=== PATIENT | female | born 1980 | race Two or more races ===

== ENCOUNTER 2020-10-07 15:51 | Outpatient (REF) | payer OTHER, SELFPAY ==
--- NOTE | 2020-10-07 16:22 | US_ITS ---
EXAMINATION: ULTRASOUND OB. CLINICAL INFORMATION: Threatened . Bleeding. COMPARISON: None TECHNIQUE: Transabdominal and transvaginal imaging of pelvis is performed. FINDINGS: There is an anteverted uterus with no intrauterine seen. There is no pole or yolk sac. The cervix is long and closed. There are multiple uterine fibroids seen. The two largest measured are, 2.5 x 2.7 x 2.9 cm in left body of uterus and 2.8 x 2.5 x 2.0 cm in the right body of uterus. The right ovary measures 2.0 x 1.6 x 1.4 cm. It appears unremarkable. The left ovary is not seen. There is no free fluid in the cul-de-sac. US/US OB <= 14 weeks fetus IMPRESSION: 1. No intrauterine seen. 2. There are multiple uterine fibroids. 3. The right ovary is unremarkable. The left ovary is not seen.
--- NOTE | 2020-10-07 16:22 | US_ITS ---
EXAMINATION: ULTRASOUND OB. CLINICAL INFORMATION: Threatened . Bleeding. COMPARISON: None TECHNIQUE: Transabdominal and transvaginal imaging of pelvis is performed. FINDINGS: There is an anteverted uterus with no intrauterine seen. There is no pole or yolk sac. The cervix is long and closed. There are multiple uterine fibroids seen. The two largest measured are, 2.5 x 2.7 x 2.9 cm in left body of uterus and 2.8 x 2.5 x 2.0 cm in the right body of uterus. The right ovary measures 2.0 x 1.6 x 1.4 cm. It appears unremarkable. The left ovary is not seen. There is no free fluid in the cul-de-sac. US/US OB transvaginal IMPRESSION: 1. No intrauterine seen. 2. There are multiple uterine fibroids. 3. The right ovary is unremarkable. The left ovary is not seen.
[2020-10-07 18:02] LABS: HCG Quantitative 8 mIU/mL
== END 2020-10-07 15:52 | disposition home or self-care (01) ==
LOC: HO.US 15:51
PROVIDERS: Visit Provider Advanced Practice Midwife
DX: O20.0 Threatened abortion (principal); N92.6 Irregular menstruation, unspecified
CPT/HCPCS: 76801; 76817; 84702; 86850; 86886; 86900; 86901

== ENCOUNTER → 2020-10-08 11:00 | Outpatient (BNVA) | payer OTHER, SELFPAY | PROVIDERS: Visit Provider Advanced Practice Midwife | DX: Z76.89 Persons encountering health services in other specified circumstances (principal) ==

== ENCOUNTER 2021-02-19 10:46 | Outpatient (REF) | payer OTHER, SELFPAY ==
[2021-02-19 17:21] LABS: CT PCR NOT DETECTED (Not Detect.); NG PCR NOT DETECTED (Not Detect.)
[2021-02-20 08:58] LABS: BV Int Neg Control Negative (Negative); BV Int Pos Control Positive (Positive)
== END 2021-02-19 10:47 | disposition home or self-care (01) ==
LOC: HO.LAB 10:46
PROVIDERS: Visit Provider Advanced Practice Midwife
DX: Z30.09 Encounter for other general counseling and advice on contraception (principal); N89.8 Other specified noninflammatory disorders of vagina; B37.3 Candidiasis of vulva and vagina; Z20.2 Contact with and (suspected) exposure to infections with a predominantly sexual mode of transmission
CPT/HCPCS: 87480; 87491; 87510; 87591; 87660; 99212

== ENCOUNTER 2021-04-28 15:11 | Outpatient (REF) | payer OTHER, SELFPAY ==
[2021-04-29 02:35] LABS: CT PCR NOT DETECTED (Not Detect.); NG PCR NOT DETECTED (Not Detect.)
[2021-04-29 09:14] LABS: BV Int Neg Control Negative (Negative); BV Int Pos Control Positive (Positive)
== END 2021-04-28 15:12 | disposition home or self-care (01) ==
LOC: HO.LAB 15:11
PROVIDERS: Visit Provider Obstetrics & Gynecology
DX: N89.8 Other specified noninflammatory disorders of vagina (principal); B37.3 Candidiasis of vulva and vagina
CPT/HCPCS: 87480; 87491; 87510; 87591; 87660; 99212

== ENCOUNTER 2021-12-04 08:13 | Outpatient (REF) | payer MEDICAID, SELFPAY ==
--- NOTE | ~2021-12-04 | US_ITS ---
EXAMINATION: US OBSTETRICAL ULTRASOUND CLINICAL INFORMATION: Hemorrhage and early COMPARISON: None. LMP: 10/13/2021. Gestational age by maternal dates is 7 weeks 3 days. Estimated date of delivery by maternal dates is 07/20/2022. TECHNIQUE: Transabdominal first trimester OB ultrasound FINDINGS: There is a single intrauterine gestational sac with visible yolk sac, embryo/fetus, and cardiac activity. There is no significant subchorionic hemorrhage or hematoma. HR: 155 beats per minute. CRL (crown rump length): 1.07 cm (7 weeks 2 days +/- 4 days). KINA (estimated date of delivery): 07/21/2022 11/11/2004). +/- 4 days. There are 4 uterine fibroids identified. There is an intramural anterior uterine body fibroid that measures 1.6 x 1.7 x 2.1 cm. There is a subserosal posterior uterine body fibroid that measures 3.2 x 3.5 x 3.8 cm. There is an anterior intramural fundal uterine fibroid that measures 1.6 x 1.1 x 1.8 cm. There is a posterior fundal uterine fibroid that measures 3.3 x 2.6 x 2.7 cm. MATERNAL ADNEXA: The right maternal ovary measures 2 x 1.3 x 2.2 cm. The left maternal ovary measures 4.1 x 1.8 x 4.1. There is a 2.2 x 2 x 1.8 cm complex left ovarian cyst. There is no ascites. US/US OB <= 14 weeks fetus IMPRESSION: 1. Single intrauterine gestation with ultrasound gestational age of 7 weeks 2 days +/- 4 days. 2. Estimated date of delivery is 07/21/2022 +/- 4 days. 3. No subchorionic hemorrhage is seen. 4. Four uterine fibroids seen, largest measuring 3.2 x 3.5 x 3.8 cm.
[2021-12-04 15:42] LABS: CT PCR NOT DETECTED (Not Detect.); NG PCR NOT DETECTED (Not Detect.)
== END 2021-12-04 08:14 | disposition home or self-care (01) ==
LOC: HO.LAB 08:13
PROVIDERS: Visit Provider Obstetrics & Gynecology
DX: O20.9 Hemorrhage in early pregnancy, unspecified (principal); O09.521 Supervision of elderly multigravida, first trimester; Z3A.01 Less than 8 weeks gestation of pregnancy; Z86.32 Personal history of gestational diabetes; Z98.891 History of uterine scar from previous surgery
CPT/HCPCS: 76801; 87491; 87591; 99212

== ENCOUNTER → 2021-12-09 15:33 | Outpatient (BNVA) | payer MEDICAID, SELFPAY | PROVIDERS: Visit Provider Obstetrics & Gynecology ==

== ENCOUNTER → 2021-12-18 09:58 | Outpatient (BNVA) | payer MEDICAID, SELFPAY | PROVIDERS: Visit Provider Advanced Practice Midwife ==

== ENCOUNTER → 2022-01-05 09:59 | Outpatient (BNVA) | payer OTHER, SELFPAY | PROVIDERS: Visit Provider Advanced Practice Midwife | DX: O09.521 Supervision of elderly multigravida, first trimester (principal); O34.219 Maternal care for unspecified type scar from previous cesarean delivery; O99.341 Other mental disorders complicating pregnancy, first trimester; F41.8 Other specified anxiety disorders; O34.11 Maternal care for benign tumor of corpus uteri, first trimester; D25.9 Leiomyoma of uterus, unspecified; O09.291 Supervision of pregnancy with other poor reproductive or obstetric history, first trimester; O99.211 Obesity complicating pregnancy, first trimester; E66.9 Obesity, unspecified; Z3A.11 11 weeks gestation of pregnancy | CPT/HCPCS: 99212 ==

== ENCOUNTER 2022-01-09 09:16 | Outpatient (REF) | payer OTHER, SELFPAY ==
--- NOTE | ~2022-01-09 | US_ITS ---
EXAMINATION: OBSTETRICAL ULTRASOUND, FIRST TRIMESTER HISTORY: 41-year-old at the 12.4 weeks of gestation A NT screening COMPARISON: 12/04/2021 TECHNIQUE: Real time transabdominal imaging with color and M-mode Doppler. FINDINGS: A single, live IUP CRL of 63.2 mm c/w 12.5wks is noted. Heart Rate: 167 beats per minute. Normal yolk sac seen. NT was 1.2.mm. NB Present The embryo appears sonographically wnl for this GA. Multiple fibroids. The largest is the seen anteriorly measuring 5.6 x 4.5 x 5.1 cm. Both maternal ovaries are seen and appear normal. GESTATIONAL AGE: 1. Established GA: 12.4 wks 2. GA from ON LICENSE OF [facility]: 12.3 wks ESTIMATED DATE OF DELIVERY: 1. Established KINA: 07/20/2022 2. KINA from ON LICENSE OF [facility]: 07/21/2022 US/US OB 1T nuc measure IMPRESSION: 1. A single live IUP 2. Size equals dates 3. NT of 1.2 mm 4. Multiple fibroids MFM Consultation: I reviewed the ultrasound findings along with significance of NT measurement. The NT of less than 3mm is generally reassuring. However, the sensitivity for T21 detection is only 60%. I reviewed the availability of serum aneuploidy screening which includes cell-free DNA and placental protein based tests. I discussed the sensitivity, false-positive rate, and other limitations associated with each test. I also reviewed the availability of invasive diagnostic tests that are associated small but definite risk of miscarriage. We also reviewed the differences between screening tests and diagnostic tests. After our discussion, she opted for the First trimester screening that is based on cell-free DNA or non-invasive testing (NIPT). She has had the 2 full-term pregnancies delivered by section. According to her, she was made aware of the fibroids in her first . Did not have any complications. The first section was due to distress during labor. The second was a repeat elective. A follow up at 18 weeks for survey has been scheduled. Thank you very much for this referral. Total time 30 minutes. The time spent was devoted to counseling the patient about the disease and diagnosis, coordinating care including reviewing her records, pertinent lab data and studies, as well as discussing diagnostic evaluation and workup, plan therapeutic interventions and future disposition of care. This includes any additional research needed to obtain further information in formulating the plan of care of this patient. This note was generated with a voice recognition program. Please excuse any errors which may have been overlooked during my review of this note. Sometimes these errors may affect the content or meaning of a given sentence.
== END 2022-01-09 09:17 | disposition home or self-care (01) ==
LOC: HO.US 09:16
PROVIDERS: Visit Provider Advanced Practice Midwife
DX: O09.511 Supervision of elderly primigravida, first trimester (principal); Z3A.12 12 weeks gestation of pregnancy
CPT/HCPCS: 76813

== ENCOUNTER 2022-01-10 08:26 | Outpatient (REF) | payer OTHER, SELFPAY ==
[2022-01-10 11:18] LABS: Hematocrit 34.8 % (37.0-47.0); Hemoglobin 11.7 g/dl (12.0-16.0); Mean Corpuscular HGB Conc 33.6 g/dl (31.0-35.0); Mean Corpuscular Hemoglobin 31.4 pg (27.0-33.0); Mean Corpuscular Volume 93.3 fL (80.0-98.0); Mean Platelet Volume 9.8 fL (9.4-12.3); Platelet Count 213 X10*3/uL (160-400); Red Blood Count 3.73 X10*6/uL (4.20-5.50); Red Cell Distribution Width 13.1 % (11.0-16.0); White Blood Count 9.2 X10*3/uL (4.8-10.8)
[2022-01-10 11:28] LABS: Glucose 1 Hour PP 50gm Dose 98 mg/dL (60-140)
[2022-01-10 11:42] LABS: Amphetamine Screen Urine Not Detected (Not Detect); Barbiturates, Urine Not Detected (Not Detect); Benzodiazepines Screen Urine Not Detected (Not Detect); Cannabinoid Screen Urine Not Detected (Not Detect); Cocaine Screen Urine Not Detected (Not Detect); Fentanyl, urine Not Detected (Not Detect); Opiate Screen Urine Not Detected (Not Detect); Phencyclidine Screen Urine Not Detected (Not Detect)
[2022-01-12 07:43] LABS: ~HepC Num1 0.09 S/CO (0.00-0.79); ~Hepatitis C Antibody Nonreactive (Nonreactive)
[2022-01-12 07:50] LABS: HBsAGNum1 0.15 S/CO (0.00-0.99); HIV AB/AG Nonreactive (Nonreactive); HIV Num 1 0.05 S/CO (0.00-0.99); Hepatitis B Surface Antigen Negative (Negative)
[2022-01-12 09:00] LABS: Syphilis Screen Nonreactive (Nonreactive)
[2022-01-12 17:56] LABS: Rubella IgG Antibody 5.01 Index
== END 2022-01-10 08:27 | disposition home or self-care (01) ==
LOC: HO.LAB 08:26
PROVIDERS: Visit Provider Advanced Practice Midwife
DX: O09.529 Supervision of elderly multigravida, unspecified trimester (principal)
CPT/HCPCS: 80307; 85027; 86762; 86780; 86787; 86803; 86850; 86900; 86901; 87086; 87340; 87389

== ENCOUNTER 2022-01-26 09:32 | Outpatient (REF) | payer OTHER, SELFPAY ==
[2022-01-26 15:11] LABS: CT PCR NOT DETECTED (Not Detect.); NG PCR NOT DETECTED (Not Detect.)
[2022-01-27 13:02] LABS: BV Int Neg Control Negative (Negative); BV Int Pos Control Positive (Positive)
[2022-01-29 09:36] LABS: HPV mRNA E6/E7 rflx Not Detected (Not Detected)
== END 2022-01-26 09:33 | disposition home or self-care (01) ==
LOC: HO.LAB 09:32
PROVIDERS: Visit Provider Advanced Practice Midwife
DX: O09.522 Supervision of elderly multigravida, second trimester (principal); O34.219 Maternal care for unspecified type scar from previous cesarean delivery; O99.342 Other mental disorders complicating pregnancy, second trimester; F41.8 Other specified anxiety disorders; O34.12 Maternal care for benign tumor of corpus uteri, second trimester; D25.9 Leiomyoma of uterus, unspecified; O99.212 Obesity complicating pregnancy, second trimester; O09.292 Supervision of pregnancy with other poor reproductive or obstetric history, second trimester; Z3A.14 14 weeks gestation of pregnancy; Z11.51 Encounter for screening for human papillomavirus (HPV)
CPT/HCPCS: 81003; 87480; 87491; 87510; 87591; 87624; 87660; 88142; 99212

== ENCOUNTER 2022-05-26 10:07 | Emergency (ER) | payer OTHER, SELFPAY | END 2022-05-26 13:25 | disposition left against medical advice (07) | PROVIDERS: Emergency Provider Emergency Medicine | DX: S61.412A Laceration without foreign body of left hand, initial encounter (principal); W45.8XXA Other foreign body or object entering through skin, initial encounter; Y93.9 Activity, unspecified; Y92.9 Unspecified place or not applicable; Y99.9 Unspecified external cause status ==

== ENCOUNTER 2023-12-25 11:21 | Emergency (ER) | payer OTHER, SELFPAY ==
[2023-12-25 11:28] VITALS: BP 122/85; PULSE 83; RESP 16; TEMP 36.8; O2SAT 100; BMI 34.7
--- NOTE | 2023-12-25 11:28 | ED_ITS ---
HPI - Skin/Abscess/Foreign Bdy General Chief complaint: Skin/Abscess/Foreign Body Stated complaint: abscess Time Seen by Provider: 12/25/23 11:35 Source: patient Mode of arrival: ambulatory Limitations: no limitations History of Present Illness HPI narrative: 43-year-old female previously healthy here with abscessed buttocks for 3 days. No fevers or chills. Related Data Previous Rx's Medication Instructions Recorded vitamins with calcium 1 tab PO DAILY 90 days #90 tabs 02/20/21 no.72-iron 29 mg-folic acid 1 mg tablet ( Plus) doxylamine succinate 25 mg tablet 25 mg PO BEDTIME 30 days #30 tabs 01/05/22 (Unisom (doxylamine)) pyridoxine (vitamin B6) 25 mg 25 mg PO tid PRN nausea 30 days 01/05/22 tablet (Vitamin B-6) #90 tabs aspirin 81 mg tablet,delayed 162 mg (2 x 81 mg) PO DAILY #300 01/26/22 release (Adult Aspirin Regimen) tabs metronidazole 500 mg tablet 500 mg PO BID 7 days #14 tabs 01/30/22 doxycycline monohydrate 100 mg 100 mg PO BID #14 caps 12/25/23 capsule Allergies Allergy/AdvReac Type Severity Reaction Status Date / Time No Known Allergies Allergy Verified 12/25/23 11:31 [No Known Allergies*] Review of Systems 2 Review of Systems: Yes all other systems are reviewed and are negative Constitutional: Constitutional: Reports no additional constitutional complaints, Denies body ache(s), Denies chills, Denies fever(s), Denies headache(s) and Denies weakness Eyes: Eyes: Reports no additional eye complaints and Denies change in vision ENT: Reports system reviewed and no additional complaints, except as documented, Denies dizziness, Denies headache(s), Denies nasal congestion, Denies nasal discharge and Denies neck pain Cardiovascular: Cardiovascular: Reports no additional cardiovascular complaints, Denies chest pain, Denies leg edema and Denies dyspnea Respiratory: Respiratory: Reports no additional respiratory complaints, Denies cough and Denies dyspnea Gastrointestinal: Gastrointestinal: Reports no additional gastrointestinal complaints, Denies abdominal pain, Denies diarrhea, Denies nausea and Denies vomiting Genitourinary: Genitourinary: Reports no additional female genitourinary complaints and Denies urinary incontinence Musculoskeletal: Musculoskeletal: Reports no additional musculoskeletal complaints, Denies back pain, Denies arthralgias, Denies joint swelling, Denies neck pain, Denies numbness and Denies tingling Integumentary/Breasts: Skin/Breast: Reports system reviewed and no additional complaints, except as docu, Reports swelling, Reports erythema and Denies rash Neurologic: Reports system reviewed and no additional complaints, except as documented, Denies Abnormal speech present, Denies dizziness, Denies headache(s), Denies numbness, Denies tingling and Denies weakness PMFSH Past Medical History Attestation statement: The following information was validated with the patient. Source: old records reviewed and nursing notes reviewed Medical History Endometriosis Surgical History H/O LEEP H/O: History of appendectomy H/O laparoscopy Family History Family History Father HTN (hypertension) Mother No problems noted. Maternal Grandmother No problems noted. Paternal Grandmother No problems noted. Social History Social History Household Members: Children Housing: Apartment Are you a primary property caretaker to a significant other at home: No Do you presently have visiting nurse or other home services: No Alcohol intake: current Alcohol intake frequency: holidays/special occasions only Patient Tobacco Use Status: Former Tobacco user Smoked in Last 30 Days: No Use of substances other than those prescribed or required for medical reasons: Yes Substance Use Type: Marijuana Substance Use Frequency: Daily Last Used Substance: Just Prior to Admission Trauma History: Mother murdered by father Agree to transfusion: Yes Advance Directives: No Advance Directives Information Provided: No Current occupational status: employed 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 Current occupational exposures/hazards: No Gender identity: Female Physical Exam 2 Vital Signs: Vital Signs: Last Vital Signs Temp 98.3 F 12/25/23 11:28 Pulse 83 12/25/23 11:28 Resp 16 12/25/23 11:28 BP 122/85 12/25/23 11:28 Pulse Ox 100 12/25/23 11:28 O2 Del Method Room Air 12/25/23 11:28 BMI result Body Mass Index 34.7 Const: General: cooperative, healthy appearing, comfortable and no acute distress Orientation/consciousness: patient oriented x3 Limitations: no limitations HEENT: Head: Yes normal to inspection Ears: hearing grossly normal bilaterally General nose exam: Normal external nose present Face and sinus: Yes normal facial exam Mouth: Normal oral and palatal mucosa present Throat: Yes posterior oropharynx normal Eyes: General: appearance normal, both eyes and all related structures P upils: Equal, round and reactive pupils present Neck: Neck: Yes normal visual inspection Chest: Chest palpation & inspection: normal inspection of the chest Resp: Effort & Inspection: normal respiratory effort Auscultation: clear to auscultation bilaterally Cardio: Rate: regular rate Rhythm: regular rhythm Peripheral pulses: P eripheral pulses 2+ throughout GI: Inspection: Yes normal to inspection Palpation (GI): Soft to palpation and nontender Auscultation: normal bowel sounds Back/Spine/Pelvis: Thoracic/Lumbar Spine: thoracic and lumbar spine normal to inspection Back/spine/pelvis image: 1. Medium abscess noted with central fluctuance and tenderness. There is no extension into the perineum or anus Skin: General skin exam: no rashes or lesions noted Neuro: General: patient oriented x3, no focal motor deficits and normal sensation to monofilament Cranial nerves: Yes Equal, round and reactive pupils present Cognition (Neuro): normal cognition Speech: No Abnormal speech present Gait exam (Neuro): Normal gait present Motor exam (neuro): 5/5 motor strength present throughout Extrem: General: Yes normal to inspection Course Course Course Narrative: RME: 43 year-old F w/ PMHx anxiety/depression, endometriosis presenting to the ED c/o cyst to tailbone/buttocks x 3 days. tried hot compresses at home without relief. Admits to slight drainage a few days ago but not at present. Admits BMs & urinating WNL area not evaluated in triage Full HPI, ROS and PE to be performed by primary ED provider. Medications Administered Discontinued Medications Generic Name Dose Route Start Last Admin Trade Name Freq PRN Reason Stop Dose Admin Lidocaine HCl 2 ml 12/25/23 11:45 12/25/23 11:55 Lidocaine Hcl 1 % Mpf 2 Ml Vial INFILTRATI 12/25/23 11:46 2 ml ONCE ONE Administration Lidocaine HCl 2 ml 12/25/23 11:45 12/25/23 11:55 Lidocaine Hcl 1 % Mpf 2 Ml Vial INFILTRATI 12/25/23 11:46 2 ml ONCE ONE Administration Medical Decision Making Medical Decision Making [facility] Narrative: 43-year-old female previously healthy here with abscessed buttocks for 3 days. No fevers or chills. To buttocks there is a medium abscess noted with central fluctuance and tenderness. There is no extension into the perineum or anus. Pt non toxic, afebrile See procedure note Differential Diagnosis Differential Diagnoses: The differential diagnosis associated with the presentation includes abscess low concern for perianal or perirectal abscess, Adelina's gangrene, Admission/Observation Consideration of admission/observation: Escalation of care including admission/observation considered low concern for perianal or perirectal abscess, Adelina's gangrene requiring advanced imaging, urgent surgical consultation Tests considered The following testing was considered but not selected: low concern for perianal or perirectal abscess, Adelina's gangrene requiring advanced imaging Prescription Management I considered prescription management with: Antibiotic Procedures Abscess I/D Site: other (buttocks) Side (if applicable): left Local Anesthetic: lidocaine 1% Amount of anesthesia used (mL): 3 Technique: incised with blade Amount of fluid expressed (mL): 10 Sent for culture/gram staining?: No Irrigation: No Packing used?: iodoform Discharge Plan Discharge Clinical Impression: Abscess of skin or subcutaneous tissue Patient Disposition: Home, Self-Care Instructions: Abscess (ED) Additional Instructions: return in 48 hours for packing removal if the packing falls out before then no need to return alternate Motrin and Tylenol for any pain as needed take the antibiotics as prescribed Prescriptions: New doxycycline monohydrate 100 mg capsule 100 mg PO BID Qty: 14 0RF No Action Plus 29 mg iron- 1 mg tablet 1 tab PO DAILY 90 Days Qty: 90 0RF metronidazole 500 mg tablet 500 mg PO BID 7 Days Qty: 14 0RF pyridoxine (vitamin B6) [Vitamin B-6] 25 mg tablet 25 mg PO tid PRN (Reason: nausea) 30 Days Qty: 90 3RF Rx Instructions: may take every 6 - 8 hours for nausea Unisom (doxylamine) 25 mg tablet 25 mg PO BEDTIME 30 Days Qty: 30 3RF aspirin [Adult Aspirin Regimen] 81 mg tablet,delayed release (DR/EC) 162 mg PO DAILY Qty: 300 1RF Referrals: Physician,None [Primary Care Provider] -
[2023-12-25] MEDS: Lidocaine HCl 1 % MPF 2 ML VIAL INFILTRATI ×2 (11:55)
--- NOTE | 2023-12-25 12:08 | MHC.EDTECH ---
Discharge vital signs: BP: 133/89 HR: 75 RR: 16 T: 98.0 O2: 98%
== END 2023-12-25 12:06 | disposition home or self-care (01) ==
PROVIDERS: Emergency Provider Internal Medicine
DX: L02.31 Cutaneous abscess of buttock (principal); Z79.82 Long term (current) use of aspirin; Z79.899 Other long term (current) drug therapy
CPT/HCPCS: 10060; 99283; 99284